=== PATIENT | female | born 2000 | race African-American/Black ===

== ENCOUNTER 2025-08-30 17:24 | Emergency (ER) | payer SELFPAY ==
[~2025-08-30] VITALS: Ht 162.6 cm; Wt 98.0 kg
[2025-08-30 17:29] VITALS: O2SAT 97
[2025-08-30 17:38] VITALS: BP 104/67; PULSE 78; RESP 18; TEMP 36.6; O2SAT 97
[2025-08-30 18:21] LABS: CLARITY URINE CLEAR (CLEAR); COLOR URINE YELLOW (YELLOW); GLUCOSE URINE NEGATIVE (NEGATIVE); KETONES URINE 2+ (NEGATIVE); LEUKOCYTE ESTERASE URINE NEGATIVE (NEGATIVE); NITRITE URINE NEGATIVE (NEGATIVE); OCCULT BLOOD URINE NEGATIVE (NEGATIVE); PH URINE 8.5 (4.5-8.0); PROTEIN URINE NEGATIVE (NEGATIVE); SPECIFIC GRAVITY URINE 1.023 (1.005-1.030); UROBILINOGEN URINE 1.0 E.U./dL (0.2-1.0)
[2025-08-30 18:39] LABS: BASOPHILS % 0.5 % (0.0-2.0); EOSINOPHILS % 1.2 % (0.0-5.0); HEMATOCRIT. 42.1 % (36.0-48.0); HEMOGLOBIN. 13.6 g/dL (12.0-16.0); LYMPHOCYTES % 7.4 % (20.0-50.0); MEAN PLATELET VOLUME 9.8 fl (7.4-10.4); MONOCYTES % 4.6 % (2.0-8.0); NEUTROPHILS % 86.3 % (40.0-76.0); PLATELET 272 x1000/uL (130-400); RED BLOOD CELL COUNT 5.15 mill/uL (4.2-5.4); RED CELL DISTRIBUTION WIDTH 14.7 % (11.6-14.6)
[2025-08-30 18:52] LABS: CREATININE 0.8 mg/dL (0.6-1.0); UREA NITROGEN BLOOD < 5 mg/dL (9-23)
[2025-08-30 19:08] LABS: B-HCG QUANTITATIVE < 1 mIU/mL (<6)
== END 2025-08-30 20:11 | disposition left against medical advice (07) ==
LOC: ER 17:24
DX: R10.9 Unspecified abdominal pain (principal); Z53.21 Procedure and treatment not carried out due to patient leaving prior to being seen by health care provider
CPT/HCPCS: 36415; 80048; 81003; 84702; 85025; 99281